=== PATIENT | female | born 1935 | race Caucasian/White ===

== ENCOUNTER 2016-08-14 21:04 | Inpatient (IN) | payer OTHER ==
[~2016-08-14] VITALS: Ht 167.6 cm; Wt 71.9 kg
[2016-08-14] MEDS ORDERED: OPTIRAY 350 100 ML VIAL HMH IV ONE (21:05)
[2016-08-14] MEDS ORDERED: ACETAMINOPHEN 325 MG TAB ONE (21:42)
[2016-08-14] MEDS ORDERED: SODIUM CHLORIDE 0.9% 1,000 ML ONE (23:40)
[2016-08-15] VITALS (7 sets, daily range): BP systolic 88–157; RESP 18–20; TEMP 97–99.5; Ht 167.6 cm; Wt 71.9 kg
[2016-08-15] MEDS ORDERED: CEFTRIAXONE 1 GM VIAL ONE (01:45)
[2016-08-15] MEDS ORDERED: SODIUM CHLORIDE 0.9% 100 ML IV ONE (01:45)
[2016-08-15] MEDS: D5 NS 1000 ML IV SCH ×2 (04:17→16:44)
[2016-08-15] MEDS ORDERED: TOBRAMYCIN IV ONE (04:40)
[2016-08-15] MEDS ORDERED: SODIUM CHLORIDE 0.9% IV ONE (04:40)
[2016-08-15] MEDS: ACETAMINOPHEN 325 MG TAB PO PRN ×2 (05:11→17:56)
[2016-08-15] MEDS ORDERED: PHARMACY TO DOSE TOBRAMYCIN IV SCH (08:50)
[2016-08-15] MEDS ORDERED: NEB-ALBUTEROL 2.5 MG/3 ML INH PRN (09:00)
[2016-08-15] MEDS ORDERED: CEFTRIAXONE 1 GM in SODIUM CHLORIDE 0.9% 50 ML IV SCH (09:00)
[2016-08-15] MEDS: Losartan 50 MG TAB PO SCH (10:35)
[2016-08-15] MEDS: NADOLOL 20 MG TAB PO SCH (10:35)
[2016-08-15] MEDS: LEVOTHYROXINE 0.112 MG TAB PO SCH (10:35)
[2016-08-15] MEDS: TETRAHYDROZOLINE HCL 15 ML BTL EYE EACH SCH ×2 (10:35→20:12)
[2016-08-15] MEDS: PANTOPRAZOLE 40 MG TAB PO SCH (10:36)
[2016-08-16] MEDS: D5 NS 1000 ML IV SCH ×2 (02:34→13:44)
[2016-08-16 03:16] VITALS: BP_SYST 155; RESP 18; TEMP 97.5
[2016-08-16] MEDS ORDERED: MISSING DOSE XX ONE ×2 (06:15→08:05)
[2016-08-16] MEDS: PANTOPRAZOLE 40 MG TAB PO SCH (06:18)
[2016-08-16] MEDS: LEVOTHYROXINE 0.112 MG TAB PO SCH (06:27)
[2016-08-16] MEDS: ONDANSETRON 4 MG VIAL IV PUSH PRN ×2 (06:29→20:22)
[2016-08-16] MEDS: LEVOFLOXACIN 500 MG/100 ML 100 ML IV SCH (08:05)
[2016-08-16] MEDS: TETRAHYDROZOLINE HCL 15 ML BTL EYE EACH SCH ×2 (08:05→20:20)
[2016-08-16 08:16] VITALS: BP_SYST 129; RESP 18; TEMP 98.1
[2016-08-16] MEDS: Losartan 50 MG TAB PO SCH (09:00)
[2016-08-16] MEDS: NADOLOL 20 MG TAB PO SCH (09:00)
[2016-08-16 11:54] VITALS: BP_SYST 135; RESP 18; TEMP 97.2
[2016-08-16 15:56] VITALS: BP_SYST 136; RESP 16; TEMP 98
[2016-08-16 19:56] VITALS: BP_SYST 157; RESP 16; TEMP 99
[2016-08-16 23:43] VITALS: BP_SYST 171; RESP 16; TEMP 98.9
[2016-08-17] MEDS: D5 NS 1000 ML IV SCH (00:02)
[2016-08-17 03:33] VITALS: BP_SYST 163; RESP 16; TEMP 98.4
[2016-08-17] MEDS: LEVOTHYROXINE 0.112 MG TAB PO SCH (05:22)
[2016-08-17] MEDS: PANTOPRAZOLE 40 MG TAB PO SCH (05:22)
[2016-08-17] MEDS ORDERED: TOBRAMYCIN IV SCH (06:00)
[2016-08-17] MEDS ORDERED: SODIUM CHLORIDE 0.9% IV SCH (06:00)
[2016-08-17 07:56] VITALS: BP_SYST 135; RESP 18; TEMP 98.3
[2016-08-17] MEDS: Losartan 50 MG TAB PO SCH (08:01)
[2016-08-17] MEDS: LEVOFLOXACIN 500 MG/100 ML 100 ML IV SCH (08:01)
[2016-08-17] MEDS: NADOLOL 20 MG TAB PO SCH (08:01)
[2016-08-17] MEDS: TETRAHYDROZOLINE HCL 15 ML BTL EYE EACH SCH ×2 (08:02→22:12)
[2016-08-17 11:26] VITALS: BP_SYST 123; RESP 18; TEMP 98.1
[2016-08-17 15:22] VITALS: BP_SYST 150; RESP 18; TEMP 98
[2016-08-17 19:32] VITALS: BP_SYST 146; RESP 18; TEMP 98.3
[2016-08-17 23:36] VITALS: BP_SYST 140; RESP 16; TEMP 97.7
[2016-08-18 04:01] VITALS: BP_SYST 152; RESP 16; TEMP 98
[2016-08-18] MEDS: PANTOPRAZOLE 40 MG TAB PO SCH (05:38)
[2016-08-18] MEDS: LEVOTHYROXINE 0.112 MG TAB PO SCH (05:38)
[2016-08-18 07:42] VITALS: BP_SYST 167; TEMP 97.2
[2016-08-18] MEDS: TETRAHYDROZOLINE HCL 15 ML BTL EYE EACH SCH (08:02)
[2016-08-18] MEDS: LEVOFLOXACIN 500 MG/100 ML 100 ML IV SCH ×2 (08:02→09:00)
[2016-08-18] MEDS: NADOLOL 20 MG TAB PO SCH (08:03)
[2016-08-18] MEDS: Losartan 50 MG TAB PO SCH (08:03)
[2016-08-18 11:45] VITALS: BP_SYST 153; RESP 18; TEMP 98.3
[2016-08-18 12:12] VITALS: BP_SYST 153; RESP 18; TEMP 98.3
== END 2016-08-18 12:44 | disposition home or self-care (01) | DRG 690 ==
LOC: ENRESERVTM → ENRESERVDT → ER 21:04 → EMR 08-15 02:56 → 4THE 08-15 03:59
PROVIDERS: ADMIT Family Medicine; ATTEND Family Medicine
DX: N12 Tubulo-interstitial nephritis, not specified as acute or chronic (principal); R78.81 Bacteremia; I10 Essential (primary) hypertension; B96.20 Unspecified Escherichia coli [E. coli] as the cause of diseases classified elsewhere; M81.0 Age-related osteoporosis without current pathological fracture; S92.351A Displaced fracture of fifth metatarsal bone, right foot, initial encounter for closed fracture; X58.XXXA Exposure to other specified factors, initial encounter; Y92.9 Unspecified place or not applicable; Z79.82 Long term (current) use of aspirin
CPT/HCPCS: 36415; 71010; 74177; 80048; 80053; 80200; 81001; 82947; 83605; 83690; 84443; 85025; 87040; 87077; 87088; 87186; 87804; 93005; 94799; 96361; 96365; 96375